=== PATIENT | male | born 1985 | race Caucasian/White ===

== ENCOUNTER 2016-11-18 01:14 | Emergency (ER) | payer BC ==
[2016-11-18 01:20] VITALS: RESP 18
--- NOTE | 2016-11-18 01:44 | ED ---
General Adult HPI - General Chief complaint: Extremity Injury, Lower Stated complaint: Ankle Injury Time Seen by Provider: 11/18/16 01:24 Source: patient, RN notes reviewed Mode of arrival: ambulatory Limitations: no limitations - History of Present Illness Initial comments: This is a 31-year-old male presents with right ankle pain after rolling it today. Patient states this happened a couple of hours ago while he was walking. Patient denies any numbness/tingling or weakness. Patient has been able to ambulate but this is painful. Patient states the pain is worse to the lateral aspect of the right ankle. Patient has some noticed swelling to the lateral aspect of the right ankle. Patient denies any recent fever, chills, shortness breath, chest pain, abdominal pain, nausea/vomiting/diarrhea, back pain, numbness, tingling, hematuria, headache, or visual changes, or any other complaints. - Related Data Home Medications Medication Instructions Recorded Confirmed No Known Home Medications [No 11/18/16 11/18/16 Known Home Medications] Allergies Allergy/AdvReac Type Severity Reaction Status Date / Time No Known Allergies Allergy Verified 11/18/16 01:20 Review of Systems ROS Statement: Those systems with pertinent positive or pertinent negative responses have been documented in the HPI. ROS Other: All systems not noted in ROS Statement are negative. Past Medical History Past Medical History: No Reported History History of Any Multi-Drug Resistant Organisms: None Reported Past Surgical History: No Surgical Hx Reported Past Psychological History: No Psychological Hx Reported Smoking Status: Current every day smoker Past Alcohol Use History: Occasional Past Drug Use History: Marijuana General Exam - General Exam Comments Initial Comments: General: The patient is awake and alert, in no distress, and does not appear acutely ill. Neck: The neck is supple, there is no tenderness or JVD. Cardiovascular: There is a regular rate and rhythm. No murmur, rub or gallop is appreciated. Respiratory: Lungs are clear to auscultation, respirations are non-labored, breath sounds are equal. No wheezes, stridor, rales, or rhonchi. Musculoskeletal: There is tenderness to palpation of the lateral aspect of the right ankle and to the lateral aspect of the right foot. There is localized swelling around the lateral malleolus. No ecchymosis or erythema. Full range of motion, strength 5/5 and Sensation intact. Dorsalis pedis pulses 2+ bilaterally. Capillary refill is normal less than 2 seconds. Neurological: A&O x 3. CN II-XII intact, There are no obvious motor or sensory deficits. Coordination appears grossly intact. Speech is normal. Skin: Skin is warm and dry and no rashes or lesions are noted. Psychiatric: Normal mood and affect. Limitations: no limitations Course Vital Signs 11/18/16 01:17 Temperature 97.1 F L Pulse Rate 90 Respiratory 18 Rate Blood Pressure 160/94 O2 Sat by Pulse 99 Oximetry Medical Decision Making - Medical Decision Making This is a 31-year-old male presents to the right ankle pain. On physical exam: There is tenderness to palpation of the lateral aspect of the right ankle and to the lateral left to the right foot. There is localized swelling around the lateral malleolus. No ecchymosis or erythema. Full range of motion, strength 5 /5 and Sensation intact. Dorsalis pedis pulses 2+ bilaterally. X-rays of the right foot and right ankle were done and reviewed showing: X-ray right foot: No acute findings. X-ray right ankle: Lateral soft tissue swelling without acute fracture seen at this time. Acute nondisplaced fractures may initially be radiographically occult. Short-term follow-up could be considered in 5-7 days if concern or symptoms persist. Reported by Dr. Watson. I discussed results with patient. I discussed ankle sprains. I discussed rest, ice, elevate and use Amarjit wrap for compression. Patient was offered crutches but patient refused. I discussed occult fracture. I discussed Tylenol and Motrin for pain. I discussed return parameters. I discussed weightbearing as tolerated. Discussed that patient should follow up with PCP in one to 2 days or return to the [facility] for any worsening symptoms or for any further concerns. Patient was receptive to this plan and patient will be discharged home. I discussed this case with attending physician Dr. Molina who agrees the plan as stated above. Disposition Clinical Impression: Ankle sprain Disposition: HOME SELF-CARE Condition: Good Instructions: Ankle Sprain (ED) Additional Instructions: Please rest, ice, elevate and use Amarjit wrap for compression while up and walking. Please use Tylenol and/or Motrin for pain. Please perform range of motion exercises to the right foot periodically throughout the day.If symptoms do not improve in the next 7 days repeat x-rays may be needed to rule out occult fracture. Please follow-up with family doctor in the next 2 days of symptoms have not improved. Please return to emergency room if the symptoms increase or worsen or for any other concerns. Referrals: None,Stated [Primary Care Provider] - 1-2 days Norman Rich MD [STAFF PHYSICIAN] - 1-2 days iKarra Mccall III, MD [STAFF PHYSICIAN] - 1-2 days Ammy Marie MD [STAFF PHYSICIAN] - 1-2 days Time of Disposition: 02:36
--- NOTE | 2016-11-18 02:12 | XR ---
EXAM: XR Right Foot Complete, 3 or More Views. CLINICAL HISTORY: Reason: Pain TECHNIQUE: Frontal, lateral and oblique views of the right foot. COMPARISON: No relevant prior studies available. FINDINGS: Bones: Tiny plantar calcaneal spur. No acute fracture. Joints: Unremarkable. No dislocation. Soft tissues: Unremarkable. No radiopaque foreign body. IMPRESSION: No acute findings.
--- NOTE | 2016-11-18 02:13 | XR ---
EXAM: XR Right Ankle Complete, 3 or More Views. CLINICAL HISTORY: Reason: Pain TECHNIQUE: Frontal, lateral and oblique views of the right ankle. COMPARISON: No relevant prior studies available. FINDINGS: Bones: Unremarkable. No acute fracture. Joints: Unremarkable. No dislocation. Soft tissues: Lateral soft tissue swelling. IMPRESSION: Lateral soft tissue swelling without acute fracture seen at this time. Acute nondisplaced fractures may initially be radiographically occult. Short-term follow-up could be considered in 5-7 days if concern or symptoms persist.
[2016-11-18 02:46] VITALS: BP 150/80; PULSE 84; TEMP 98.1
== END 2016-11-18 02:44 | disposition home or self-care (01) ==
LOC: EC 01:14
DX: S93.401A Sprain of unspecified ligament of right ankle, initial encounter (principal); F17.200 Nicotine dependence, unspecified, uncomplicated; X58.XXXA Exposure to other specified factors, initial encounter; Y93.01 Activity, walking, marching and hiking
CPT/HCPCS: 99283

== ENCOUNTER 2021-09-07 08:32 | Emergency (ER) | payer BC, OTHER ==
[2021-09-07 08:37] VITALS: BP 129/84; PULSE 85; RESP 18; TEMP 98.6
--- NOTE | 2021-09-07 09:12 | ED ---
URI HPI - General Chief Complaint: Upper Respiratory Infection Stated Complaint: covid test Time Seen by Provider: 09/07/21 08:37 Source: patient, RN notes reviewed Mode of arrival: ambulatory Limitations: no limitations - History of Present Illness Initial Comments: 36-year-old male presents emergency from she complaint of fever cough congestion body aches. Patient states that symptoms started last few days. Patient states that his kids are sick at home multiple sick contacts. Patient has no shortness of breath no chest pain. Patient has mild headache no GI symptoms no other associated symptoms - Related Data Home Medications Medication Instructions Recorded Confirmed No Known Home Medications 11/18/16 11/18/16 Allergies Allergy/AdvReac Type Severity Reaction Status Date / Time No Known Allergies Allergy Verified 09/07/21 08:33 Review of Systems ROS Statement: Those systems with pertinent positive or pertinent negative responses have been documented in the HPI. ROS Other: All systems not noted in ROS Statement are negative. Past Medical History Past Medical History: No Reported History History of Any Multi-Drug Resistant Organisms: None Reported Past Surgical History: No Surgical Hx Reported Past Psychological History: No Psychological Hx Reported Smoking Status: Current every day smoker Past Alcohol Use History: Occasional, Rare Past Drug Use History: Marijuana General Exam Limitations: no limitations General appearance: alert, in no apparent distress Head exam: Present: atraumatic, normocephalic, normal inspection Eye exam: Present: normal appearance, PERRL, EOMI. Absent: scleral icterus, conjunctival injection, periorbital swelling ENT exam: Present: normal exam, normal oropharynx, mucous membranes moist Neck exam: Present: normal inspection, full ROM. Absent: tenderness, meningismus, lymphadenopathy Respiratory exam: Present: normal lung sounds bilaterally. Absent: respiratory distress, wheezes, rales, rhonchi, stridor Cardiovascular Exam: Present: regular rate, normal rhythm, normal heart sounds. Absent: systolic murmur, diastolic murmur, rubs, gallop, clicks Course Vital Signs 09/07/21 08:33 Temperature 98.6 F Pulse Rate 85 Respiratory 18 Rate Blood Pressure 129/84 O2 Sat by Pulse 98 Oximetry Medical Decision Making - Medical Decision Making Patient is positive for covid 19. Vitals are stable discharged in stable condition return parameters were discussed. - Lab Data Lab Results 09/07/21 Range/Units 08:38 Coronavirus (PCR) Detected A (Not Detectd) Disposition Clinical Impression: COVID-19 Disposition: HOME SELF-CARE Condition: Stable Instructions (If sedation given, give patient instructions): Coronavirus Disease 2019 (COVID-19) Additional Instructions: Please return to the Emergency Department if symptoms worsen or any other concerns. Is patient prescribed a controlled substance at d/c from ED?: No Referrals: None,Stated [Primary Care Provider] - 1-2 days Time of Disposition: 09:11
== END 2021-09-07 09:20 | disposition home or self-care (01) ==
LOC: EC 08:32
DX: U07.1 COVID-19 (principal); F17.200 Nicotine dependence, unspecified, uncomplicated
CPT/HCPCS: 87635; 99283